=== PATIENT | female | born 1970 | race Hispanic/Latino ===

== ENCOUNTER → 2021-03-20 | Day surgery (SDC) | payer BC ==
[~2021-03-20] MED LIST: FENTANYL CITRATE/PF 100MCG/2 ML INJ ONE; GLUCAGON FOR INJ 1 MG VIAL ONE; HYOSCYAMINE SULFATE 0.5 MG/ML INJ ONE; LIDOCAINE HCL 2% LOCAL INJ 5 ML SDV VIAL INJ ONE; METOCLOPRAMIDE HCL 10 MG/2ML VIAL ONE; MIDAZOLAM HCL 2 MG/2 ML VIAL ONE; PROPOFOL IV EMULSION 10 MG/ML 20 ML VIAL ONE
[2021-03-20 15:40] VITALS: BP 135/80
== END | disposition home or self-care (01) ==
LOC: OR 11:40
PROVIDERS: ATTEND Internal Medicine Gastroenterology
DX: Z12.11 Encounter for screening for malignant neoplasm of colon (principal); K63.5 Polyp of colon; K29.70 Gastritis, unspecified, without bleeding; K20.90 Esophagitis, unspecified without bleeding; K21.9 Gastro-esophageal reflux disease without esophagitis; K64.8 Other hemorrhoids; E78.5 Hyperlipidemia, unspecified; G51.0 Bell's palsy; R73.03 Prediabetes; Z01.810 Encounter for preprocedural cardiovascular examination; Z68.39 Body mass index [BMI] 39.0-39.9, adult
CPT/HCPCS: 43239; 45380; 81025; 93005; J1610; J1980; J2001; J2250; J2704; J2765; J3010; 45378